=== PATIENT | male | born 1995 | race Caucasian/White ===

== ENCOUNTER 2019-08-11 22:05 | Emergency (ER) | payer MEDICAID ==
[~2019-08-11] VITALS: Ht 185.4 cm; Wt 65.9 kg
[2019-08-11] MEDS ORDERED: acetaminophen w/codeine (30MG) #3 tablet PO ONE (22:45)
[2019-08-11] MEDS ORDERED: HYDR-4383 PO (23:13)
[2019-08-11] MEDS ORDERED: HYDROcodone/acetaminophen 10/325mg tab PO ONE (23:15)
[2019-08-11 23:49] VITALS: BP 119/88
== END 2019-08-11 23:50 | disposition home or self-care (01) ==
LOC: ER 22:05
DX: S52.602A Unspecified fracture of lower end of left ulna, initial encounter for closed fracture (principal); F17.200 Nicotine dependence, unspecified, uncomplicated; F12.90 Cannabis use, unspecified, uncomplicated; Z79.899 Other long term (current) drug therapy; V89.2XXA Person injured in unspecified motor-vehicle accident, traffic, initial encounter; Y93.89 Activity, other specified; Y92.89 Other specified places as the place of occurrence of the external cause; Y99.8 Other external cause status
CPT/HCPCS: 29125; 73090; 99283

== ENCOUNTER 2019-08-22 15:11 | Outpatient (CLI) | payer MEDICAID ==
[~2019-08-22 15:11] MED LIST: HYDR-4383 PO
== END 2019-08-22 16:35 | disposition home or self-care (01) ==
LOC: ORTHO 15:11
PROVIDERS: ATTEND Orthopaedic Surgery
DX: S52.602A Unspecified fracture of lower end of left ulna, initial encounter for closed fracture (principal); F17.200 Nicotine dependence, unspecified, uncomplicated; F12.90 Cannabis use, unspecified, uncomplicated; Z79.899 Other long term (current) drug therapy; V89.2XXA Person injured in unspecified motor-vehicle accident, traffic, initial encounter; Y93.89 Activity, other specified; Y92.89 Other specified places as the place of occurrence of the external cause; Y99.8 Other external cause status
CPT/HCPCS: 73110; A4590; G0463

== ENCOUNTER 2019-09-19 15:42 | Outpatient (CLI) | payer MEDICAID | END 2019-09-19 16:51 | disposition home or self-care (01) | LOC: ORTHO 15:42 | PROVIDERS: ATTEND Orthopaedic Surgery | DX: F17.200 Nicotine dependence, unspecified, uncomplicated (principal); S52.602D Unspecified fracture of lower end of left ulna, subsequent encounter for closed fracture with routine healing; X58.XXXD Exposure to other specified factors, subsequent encounter | CPT/HCPCS: 73110; G0463 ==

== ENCOUNTER 2021-01-05 09:24 | Day surgery (SDC) | payer MEDICAID ==
[2020-12-29 16:39] LABS: BASOPHILS # (AUTO) 0.1 X10'3 (0-0.2); BASOPHILS % (AUTO) 0.7 % (0-1); EOSINOPHILS # (AUTO) 0.3 X10'3 (0-0.9); EOSINOPHILS % (AUTO) 1.8 % (0-6); LYMPHOCYTES # (AUTO) 2.5 X10'3 (1.1-4.8); LYMPHOCYTES % (AUTO) 16.9 % (21-51); MEAN CORPUSCULAR HEMOGLOBIN 31.9 PG (27.0-31.0); MEAN CORPUSCULAR VOLUME 93.8 FL (78-98); MEAN PLATELET VOLUME 7.9 FL (7.4-10.4); MONOCYTES # (AUTO) 1.6 X10'3 (0-0.9); MONOCYTES % (AUTO) 10.4 % (2-12); NEUTROPHILS # (AUTO) 10.4 X10'3 (1.8-7.7); NEUTROPHILS % (AUTO) 70.2 % (42-75); PRE OP HEMATOCRIT 44.6 % (42.0-52.0); PRE OP HEMOGLOBIN 15.2 g/dL (14.0-17.9); PRE OP PLATELET COUNT 344 X10'3 (140-440); RED BLOOD COUNT 4.75 X10'6 (4.70-6.10); RED CELL DISTRIBUTION WIDTH 13.8 % (11.5-14.5)
[2020-12-29 16:56] LABS: ALBUMIN 4.1 G/DL (3.4-5.0); ALBUMIN/GLOBULIN RATIO 1.1 (1.1-1.5); ALKALINE PHOSPHATASE 89 IU/L (46-116); BLOOD UREA NITROGEN 12 MG/DL (7-18); BUN/CREATININE RATIO 12.2 (5.4-32.0); CALCIUM 9.5 MG/DL (8.5-10.1); CHLORIDE 103 MMOL/L (99-107); CREATININE 0.98 MG/DL (0.60-1.10); PRE OP ALT 32 U/L (30-65); PRE OP ANION GAP 10 (8-16); PRE OP AST 28 U/L (10-37); PRE OP BILIRUB, TOTAL 0.4 MG/DL (0.0-1.0); PRE OP GLUCOSE 88 MG/DL (70-104); PRE OP POTASSIUM 3.4 MMOL/L (3.4-5.1); PRE OP SODIUM 141 MMOL/L (135-145); TOTAL CARBON DIOXIDE 27.6 MMOL/L (24-32); eGFR > 90 ML/MIN
[~2021-01-05] VITALS: Ht 185.4 cm; Wt 73.1 kg
[2021-01-05] VITALS (10 sets, daily range): BP systolic 112–143; BP diastolic 62–77
[~2021-01-05 09:24] MED LIST changes: -HYDR-4383 PO; +NO HOME MEDS; +cefazolin/dext.iso 2gm/100ml IV ONE; +famotidine 20mg tablet PO ONE; +ringers solution, lacted 1,000 ML IV SCH
[2021-01-05] MEDS ORDERED: hydrALAZINE 20mg/ml inj. IV PRN (09:30)
[2021-01-05] MEDS ORDERED: labetalol 20mg/4ml (5mg/ml) syringe IV PRN (09:30)
[2021-01-05] MEDS ORDERED: morphine 2 MG/ML inj. syringe IV PRN (09:30)
[2021-01-05] MEDS ORDERED: ondansetron/PF 4mg/2ml inj IV PRN (09:30)
[2021-01-05] MEDS ORDERED: morphine 4 MG/ML inj SYRINge IV PRN (09:30)
[2021-01-05] MEDS ORDERED: ringers solution, lacted 1,000 ML IV SCH (09:30)
[2021-01-05] MEDS ORDERED: fentaNYL/PF 50MCG/1 ML 2ML syringe IV PRN ×2 (09:30)
[2021-01-05] MEDS ORDERED: LIDOcaine 1% (10mg/ml) 2ml vial ONE (09:50)
[2021-01-05] MEDS ORDERED: LIDOcaine 1% 30ml preserv. free vial ONE (10:15)
[2021-01-05] MEDS ORDERED: BUPIVAcaine/PF 2.5 mg/ml (0.25%) 30ml vial ONE (10:15)
--- NOTE | 2021-01-05 10:32 | NUR ---
HR 125 ON ADMIT DUE TO ELEVATED NERVES. PT. MUCH CALMER SINCE IV WAS INITIATED. Addendum: 01/05/21 at 1037 by Yenifer Newberry RN Amended: Links added.
[2021-01-05] MEDS ORDERED: oxyCODONE/APAP 5-325mg tablet PO PRN ×2 (10:35)
[2021-01-05] MEDS ORDERED: MIDAZolam 1 MG/ML 5ML VIAL ONE (10:40)
[2021-01-05] MEDS ORDERED: fentaNYL/PF 50MCG/1 ML 2ML syringe ONE (10:40)
[2021-01-05] MEDS ORDERED: glycopyrrolate 0.2mg/ml inj ONE (10:41)
[2021-01-05] MEDS ORDERED: rocuronium 10mg/ml inj IV ONE (10:41)
[2021-01-05] MEDS ORDERED: LIDOcaine 2% (20mg/ml) 5ml vial ONE (10:41)
[2021-01-05] MEDS ORDERED: ondansetron/PF 4mg/2ml inj ONE (10:41)
[2021-01-05] MEDS ORDERED: propofol inj 20 ML IV ONE (10:41)
[2021-01-05] MEDS ORDERED: sevoflurane 250ml liquid IH ONE (10:42)
[2021-01-05] MEDS ORDERED: dexamethasone sod phosphate 10mg/ml inj ONE (10:42)
[2021-01-05] MEDS ORDERED: neostigmine methylsulfate 1 MG/ML 10ml vial ONE (10:42)
[2021-01-05] MEDS ORDERED: metoprolol tartrate 1mg/ml inj IV ONE (10:56)
--- NOTE | 2021-01-05 12:00 | NUR ---
ADMITTED TO PACU FROM OR ACCOMPANIED BY ANESTHESIA. INTIAL PHYSICAL ASSESSMENT DONE AND RECORDED. REPORT RECEIVED FROM ANESTHESIA.
--- NOTE | 2021-01-05 13:30 | NUR ---
DISCHARGE CRITERIA MET, DISCHARGE INSTRUCTIONS GIVEN, DEMONSTRATES VERBAL UNDERSTANDING. DISCHARGED HOME IN GOOD CONDITION.
== END 2021-01-05 13:30 | disposition home or self-care (01) ==
LOC: PAS 09:24
PROVIDERS: ATTEND Surgery
DX: K40.90 Unilateral inguinal hernia, without obstruction or gangrene, not specified as recurrent (principal); Z20.822 Contact with and (suspected) exposure to COVID-19; F41.9 Anxiety disorder, unspecified; F17.210 Nicotine dependence, cigarettes, uncomplicated; Z72.89 Other problems related to lifestyle; Z79.899 Other long term (current) drug therapy
CPT/HCPCS: 36415; 49650; 80053; 82948; 85025; C1781; J1100; J2001; J2250; J2405; J2704; J2710; J3010; J3490; S2900; U0003; U0005; A4215; A4618; J7120

== ENCOUNTER 2025-07-07 22:07 | Inpatient (IN) | payer MEDICAID ==
[~2025-07-07] VITALS: Ht 185.4 cm; Wt 87.6 kg
[~2025-07-07 22:07] MED LIST changes: -cefazolin/dext.iso 2gm/100ml IV ONE; -famotidine 20mg tablet PO ONE; -ringers solution, lacted 1,000 ML IV SCH
[2025-07-07 23:03] LABS: MEAN PLATELET VOLUME 8.1 FL (7.4-10.4); RED CELL DISTRIBUTION WIDTH 13.6 % (11.5-14.5)
[2025-07-07 23:10] LABS: CREATININE 1.14 MG/DL (0.60-1.10); TOTAL CARBON DIOXIDE 30.7 MMOL/L (24-32); eCRCL 109 ML/MIN; eGFR 76 ML/MIN
[2025-07-07] MEDS: fentaNYL/PF 50MCG/1 ML 2ML syringe IV ONE ×2 (23:43→23:46)
--- NOTE | 2025-07-07 23:45 | Physician Documentation ---
History of Present Illness Chief Complaint: Abdominal Pain Stated Complaint: ABD PAIN Time Seen by MD: 22:35 OK to notify your PCP?: Yes Primary Medical Doctor: Shantell Rondon Source: patient Mode of Arrival: POV Exam Limitations: no limitations HPI Mr. Cage is a 30 y/o male who presents with c/o generalized diffuse ABD pain. He states that pain started earlier today and has persisted. He initially thought it was due to constipation so he took Dulcolax without significant improvement. Last BM was ~ 0230 this morning. Denies BRBPR or melena. No hematu columba or dysuria. No recent unexplained weight loss. No recent ABD trauma. + nausea/vomiting. Denies hematemesis. Medication Reconciliation Allergies: Coded Allergies: No Known Allergies (Unverified , 08/11/19) Miscellaneous Medications Home Med List (No Home Medications), (Reported) Past Medical History Past Medical History: No Pertinent History Past Surgical History: other Alcohol Use: None Drug Use: marijuana Lives with: Family Lives In: Home Occupation: student Review of Systems All Other Systems at this time: Reviewed and Negative Physical Exam Vital Signs: RN Vital Signs have been reviewed: Yes, Temperature: 97.8, Source: Temporal, Heart Rate: 107, Respiratory Rate: 18, BP: 147/75, Pulse Oximetry: 99, Weight: 87.600 Oxygen Flow Rate: 0 Physical Exam GEN: Alert and oriented and in NAD. HEENT: NC/AT. PERRLA. No scleral icterus. MMM. No oral lesions. NECK: Supple. No JVD. CHEST: RRR. No M/G/T. LUNGS: CTA B. No W/R/R. ABD: Soft. NTND. + BS. No rebounding or guarding. BACK: No CVA TTP. EXT: No c/c/e. NEURO: Alert and oriented x 4. Cooperative. Sensorimotor intact x 4 extremities. Progress Results/Orders Results/Orders Orders - PER DODGE MD Urinalysis, Cult If Indicated (07/07/25 22:16) Ct Abdomen Pelvis (07/07/25 23:27) Completed Orders - PER DODGE MD Cbc/Diff (07/07/25 22:16) BMP (07/07/25 22:16) Lipase (07/07/25 22:16) CMP (07/07/25 22:16) Fentanyl/Pf (Fentanyl 0.05 Mg/Ml Syringe (07/07/25 23:35) Fentanyl/Pf (Fentanyl 0.05 Mg/Ml Syringe (07/07/25 23:35) Vital Signs 07/07/25 07/07/25 22:27 22:57 Temp 97.8 Pulse 107 Resp 18 B/P (MAP) 147/75 Pulse Ox 99 O2 Flow Rate 0 Laboratory Tests Test 07/07/25 22:25 White Blood Count 17.2 H Red Blood Count 5.45 Hemoglobin 17.5 Hematocrit 52.1 H Mean Corpuscular Volume 95.5 Mean Corpuscular Hemoglobin 32.2 H Mean Corpuscular Hemoglobin Concent 33.7 Red Cell Distribution Width 13.6 Platelet Count 390 Mean Platelet Volume 8.1 Neutrophils (%) (Auto) 87.4 H Lymphocytes (%) (Auto) 7.0 L Monocytes (%) (Auto) 5.2 Eosinophils (%) (Auto) 0.2 Basophils (%) (Auto) 0.2 Neutrophils # (Auto) 15.0 H Lymphocytes # (Auto) 1.2 Monocytes # (Auto) 0.9 Eosinophils # (Auto) 0.0 Basophils # (Auto) 0.0 CBC Comment Sodium Level 138 Potassium Level 4.3 Chloride Level 99 Carbon Dioxide Level 30.7 Anion Gap 8 Blood Urea Nitrogen 11 Creatinine 1.14 H Estimated GFR/1.73 m2 76 BUN/Creatinine Ratio 9.6 L Glucose Level 111 H Calcium Level 9.6 Total Bilirubin 0.3 Aspartate Amino Transf (AST/SGOT) 45 H Alanine Aminotransferase (ALT/SGPT) 101 H Alkaline Phosphatase 79 Total Protein 9.1 H Albumin 4.4 Globulin 4.7 H Albumin/Globulin Ratio 0.9 L Lipase > 375 H Chemistry Comments Medical Decision Making Additional information obtaine: old records Findings While here in the ED, he remained hemodynamically normal with ABC's intact and in NAD. He is afebrile but appears uncomfortable. ABD exam nonfocal on exam. No rebounding or guarding. + leukocytosis with WBC count of 17 with neutrophil predominance and without a left shift. Lytes are within normal range. Lipase > 375 and LFT's slightly elevated. He appears pretty uncomfortable so decision made to scan to further evaluate. CT ABD/Pelvis obtained and showed signs to confirm pancreatitis. After further discussion, he reports that he drinks a considerable amount of alcohol. His s/s appear most consistent with alcohol- induced pancreatitis. He will be admitted for close monitoring and IV fluid resuscitation. Differential Dx:Considerations: AAA, Aortic dissection, Appendicitis, Bowel obstruction, Cholangitis, Cholelithasis, Constipation, Diverticular disease, Esophagitis, Gastritis/PUD, Hernia, Hepatitis, Inflammatory BD, Ischemic bowel, Pancreatitis, Testicular torsion, Urinary obstruction, Urinary tract infection, Urolithiasis Departure Disposition: ADMITTED INPATIENT Admitted to Inpatient Unit: yes, to hospitalist Admission Level of Care: Med/Surg Impression: Primary Impression: Abdominal pain Additional Impression: Alcohol induced acute pancreatitis Condition: Improved Discharge Instructions: Acute Pancreatitis, [id number] Referrals: NO PRIMARY CARE PROVIDER (PCP) Education Educated: Patient Educated regarding: diagnosis, treatment Signature Scribe Signature: N/A Attestation: N/A PER DODGE MD Jul 07, 2025 23:45
[2025-07-08] VITALS (7 sets, daily range): BP systolic 108–146; BP diastolic 64–99; PULSE 86–92; RESP 14–18; TEMP 97.7–98.9; O2SAT 93–99
[2025-07-08] MEDS ORDERED: iohexol 300mg/ml 100ml inj. ONE (00:03)
--- NOTE | 2025-07-08 00:36 | RADIOLOGY REPORT ---
Exam: CT CT ABDOMEN PELVIS W/ IV CONTRAST History: Diffuse ABD pain COMPARISON: None Technique: Multidetector spiral CT of the abdomen and pelvis was performed from lung bases to pubic symphysis. Intravenous contrast was administered during this examination. Portal venous imaging was obtained. Axial, coronal and sagittal multiplanar reformats were performed by the technologist on a separate workstation. Radiation Dose : 1. Abdomen/Pelvis: CTDIvol 15 mGy, DLP 899 mGy*cm. Findings: Lower Chest: No acute findings. Liver: Parenchymal hypo enhancement, with a portion of the dome excluded from [id number]. Gallbladder and Biliary Tree: Unremarkable Pancreas: Subtle parenchymal and peripancreatic stranding of the body and tail. No fluid collection or necrosis. Spleen: Unremarkable Adrenal Glands: Unremarkable Kidneys: Normal. Bladder: Unremarkable. Pelvic Organs: Unremarkable as visualized. Bowel: No bowel wall thickening or obstruction. Small hiatal hernia with air- fluid level. Small amount of liquid contents within the distal small bowel and proximal large bowel. No evidence of appendicitis. Vasculature: Unremarkable. Lymphadenopathy: No evident adenopathy. Peritoneum: No ascites, free air, or fluid collection. Abdominal Wall: No significant hernia. Musculoskeletal: No acute abnormality. IMPRESSION: 1. Findings compatible with acute interstitial pancreatitis, correlate with lab values. 2. Small hiatal hernia with evidence of gastroesophageal reflux. Radiation optimization: All CT scans at this facility use at least one of these dose optimization techniques: automated exposure control mA and/or kV adjustment per patient size (includes targeted exams where dose is matched to clinical indication) or iterative reconstruction.
[2025-07-08] MEDS ORDERED: potassium Cl 20 mEq SR tablet PO PRN ×2 (01:30)
[2025-07-08] MEDS ORDERED: potassium Cl 40MEQ/1/2NS 520ml 520 ML IV PRN (01:30)
[2025-07-08] MEDS ORDERED: magnesium sulf-water 4G/100mL 100 ML IV PRN (01:30)
[2025-07-08] MEDS ORDERED: mag hydrox/Alum hydrox/simeth 30ml oral suspension PO PRN (01:30)
[2025-07-08] MEDS ORDERED: magnesium sulf-water 2g/50mL 50 ML IV PRN (01:30)
[2025-07-08] MEDS ORDERED: magnesium hydroxide 30ml (MOM) UD suspension PO PRN (01:30)
[2025-07-08] MEDS ORDERED: magnesium Cl slow-release 64mg tablet PO PRN (01:30)
[2025-07-08] MEDS ORDERED: metoclopramide 5 mg/ml inj IV PRN (01:35)
[2025-07-08 01:47] LABS: APTT 26 SECONDS (22-32); INR 1.0 INR
[2025-07-08] MEDS: HYDROmorphone inj. 0.5 MG/0.5 ML DISP.SYRIN IV PRN (01:54)
[2025-07-08] MEDS: ondansetron/PF 4mg/2ml inj IV PRN (01:54)
[2025-07-08 01:58] LABS: PHOSPHORUS 3.9 MG/DL (2.3-4.5)
[2025-07-08] MEDS: normal saline 1000ML IV soln IVB ONE (01:58)
[2025-07-08] MEDS: normal saline 1000ml 1,000 ML IV SCH (01:58)
[2025-07-08 01:59] LABS: PRO BRAIN NATRIURETIC PEPTIDE < 30 PG/ML (0-125)
[2025-07-08] MEDS: ringers solution, lacted 1,000 ML IV ONE ×3 (02:25→12:39)
--- NOTE | 2025-07-08 02:41 | HISTORY AND PHYSICAL-Residence ---
History & Physical Providers to CC Resident Creating Document: JOANNE CALDERON, RES ~ History of Present Illness Primary Medical Doctor: Shantell Rondon Reason for Admit\Complaint: Abdominal pain, nausea and vomiting History of Present Illness This is a 30 year old male with alcohol abuse presented came to the ER with chief complaint abdominal pain, nausea and vomiting. Patient stated that when he woke up from a nap this afternoon, he has gradually increasing, constant, burning type of diffuse generalized abdominal pain radiating to back, with severity of 8/10 in intensity associated with nausea and few episodes of vomiting. Initially patient thought it was due to constipation and he took Dulcolax without any significant improvement. The last bowel movement was 0230 this morning. Patient endorses that he drinks 4-5 beers every day and the last drink was yesterday night. Patient denies similar kind of episodes in the past. Patient denies recent food intake outside or sick contacts or recent trauma. Patient denies constipation, diarrhea, difficulty in breathing, chest pain, lightheadedness, flank pain, abdominal distention, swelling of legs,dyspepsia, blood in stools or vomiting, dysuria, weight loss. Allergies: Coded Allergies: No Known Allergies (Unverified , 08/11/19) Home Medications Home Medications Active Reported No Home Medications (Home Med List) Each Past Medical History Past Medical History No pertinent past medical history Past Surgical History Surgical History Comment Hernia repair Past Social History Social History Comment Alcoholic: Drinks 4-5 beers per day since 2021, the last drink was yesterday night. Ex-smoker, previously used to smoke 1 pack of cigarettes, quit smoking x 2020, using nicotine patch Denies any recreational drug use Lives with his friends Worked at [employer], fired from a job x 3 weeks ago. Smoking: Non-Smoker, Cigarettes Alcohol Use: None Drug Use: Marijuana Lives with: Family Lives In: Home Occupation: student ROS All Other Systems: Reviewed and Negative ROS Constitutional: No fever, chills, dizziness, weight gain or loss, night sweats Eyes: No pain, erythema, discharge, blurring of vision ENT: No sore throat, epistaxis, tinnitus Cardiovascular:No chest pain, palpitations, syncope, lower extremity edema, paroxysmal nocturnal dyspnea Respiratory: No Shortness of breath and cough, No hemoptysis. Gastrointestinal: Reports Abdominal pain, vomiting,nausea and no melena. Normal appetite. No constipation,diarrhea, hematemesis, Musculoskeletal: No swelling or edema of extremities. Integumentary: No change in skin, hair, nails. No swelling, bruising, abrasions Neurologic: No weakness,No headache, neck pain, numbness or tingling of the extremities, Psychiatric: No delusions, depression, loss of interest in normal activity or change in sleep pattern, hallucinations, suicidal ideations Endocrine: No fatigue, no weakness. polydipsia, polyuria, change in appetite, heat or cold intolerance, sweating, dry skin Hematological: No bleeding, petechiae, bruising Allergies: No asthma or urticaria Exam Vitals: Vital Signs Date Time Temp Pulse Resp B/P (MAP) Pulse Ox O2 Delivery O2 Flow Rate FiO2 07/08/25 00:41 97.8 76 16 151/95 (113) 100 0 General: Awake , alert and oriented to time,place, person,not in distress HEENT: Atraumatic, normocephalic, PERRLA, EOMI, anicteric sclera ; pink conjunctiva, dry mucos membranes Neck: Trachea midline. Supple, normal range of motion, no JVD, no lymphadenopathy Chest and Respiratory: Equal breath sounds bilaterally, no tachypnea, wheezing, ronchi,rubs .Chest wall is symmetric and without deformity. Cardiac: S1, S2 heard,Regular rate and rhythm, no murmurs ,no gallops, no rubs. Abdomen: Soft, no abdominal distention, mild tenderness over epigastric region, No guarding or rigidity, Ferris's sign negative. normal bowel sounds x4 quadrant, no hepatosplenomegaly MSK: Range of motion of all extremities are normal. There is no joint pain or joint swelling or joint erythema. There is no muscle pain or tenderness or swelling. Extremities: warm, well-perfused, No cyanosis, clubbing, 2+ pulses felt Neurological: Mental status exam: alert and consciousness, orientation, memory, speech - Cranial nerve test: Cranial nerves II-XII intact. - Motor system: Normal Nutrition, normal tone, Power 5/5, no involuntary movements - Sensory system: Intact - Reflex testing: Biceps, triceps and knee reflexes 2+ - Cerebellar: Normal Skin: Warm and dry Psychiatry: Affect and mood are normal Diagnostic Data Last Recorded Lab Results: 07/07/25222407/07/252224 Diagnostic Data: Laboratory Tests Test 07/07/25 22:25 Prothrombin Time 10.3 SECONDS (9.0-12.0) INR International Normalized Ratio 1.0 INR Activated Partial Thromboplast Time 26 SECONDS (22-32) Coagulation Comments Advance Care Planning Advanced Care plannin - 30 Minutes (I spent a total of 17 minutes on reviewing various resuscitative measures with the patient at the time of admission. The patient has decided on a full code status) Additional Plan Abd pain, nausea and vomiting 2/2 Alcohol-induced acute pancreatitis CBC showed leukocytosis with neutrophil predominance Lipase > 375, amylase 347 CT abdomen: Subtle parenchymal and peripancreatic stranding of the body and tail with No fluid collection or necrosis suggestive of acute interstitial pancreatitis Started on clear liquid diets, advanced diet if patient tolerates Pain management with IV morphine p.r.n. IV Zofran 4 mg q.4h PRN for nausea & vomiting IV Protonix 40 mg q.12h IV lactated ringer 1 L bolus was given and started on 150 mL/hr Follow up on lipase levels GERD CT scan Small hiatal hernia with evidence of gastroesophageal reflux IV Protonix 40 mg q.12h Mild IGOR likely prerenal due to dehydration Creatinine is 1.14 IV fluids & oral hydration Monitor BMP levels Alcohol use disorder Mildly elevated AST, ALT Substance use navigator and social organization professor consulted Follow up on ammonia levels Started on mild alcohol withdrawal protocol Code status: Full code DVT prophylaxis : Heparin GI prophylaxis: IV Protonix Nutrition: Clear liquids diet for now Physical therapy: ordered Line/tube: PIV Analgesia/sedation: Morphine Disposition: Continue medical management and advance diet if patient tolerates. Resident attestation The above note has been reviewed and supervised by a senior resident PGY2/PGY3 Patient was seen, examined and discussed with the attending physician Ashley Calderon MD Internal Medicine Resident, PGY 1 Plan reviewed with bedside team. Patient seen through remote audiovisual assessment through HIPAA compliant setup. All labs, flowsheets, and images reviewed Cumulative nonprocedural care time spent in directed patient care = 30 min Date of Service: Jul 08, 2025 Billing Provider: RODRIGUEZ ROSAS MD, SUNIL KUMAR, RES Jul 08, 2025 02:41 RODRIGUEZ ROSAS MD Jul 08, 2025 07:38
[2025-07-08 02:44] LABS: URINE AMPHETAMINE SCREEN NEGATIVE (Neg); URINE BARBITUATE SCREEN NEGATIVE (Neg); URINE BENZODIAZEPINES SCREEN NEGATIVE (Neg); URINE CANNABINOID SCREEN NEGATIVE (Neg); URINE COCAINE SCREEN NEGATIVE (Neg); URINE METHADONE SCREEN NEGATIVE (Neg); URINE OPIATE SCREEN NEGATIVE (Neg); URINE PHENCYCLIDINE SCREEN NEGATIVE (Neg)
[2025-07-08 03:10] LABS: LEUKOCYTE ESTERASE ,URINE NEGATIVE (Neg); NITRITES, URINE NEGATIVE (Neg); OCCULT BLOOD,URINE TRACE-INTACT (Neg)
[2025-07-08 03:22] LABS: UA COLLECTION TYPE CLN CATCH MIDSTREAM
[2025-07-08 03:25] LABS: AMORPHOUS PHOSPHATES 1+; SQUAMOUS EPITHELIAL CELL,UR NONE SEEN /LPF (FEW)
[2025-07-08] MEDS ORDERED: diazepam inj 5 MG/ML inj. IV PRN (03:55)
[2025-07-08] MEDS: ringers solution, lacted 1,000 ML IV SCH (04:47)
[2025-07-08 05:59] LABS: LACTIC SEPSIS 1.0 MMOL/L (0.4-2.0)
[2025-07-08] MEDS: K and/or MAG REPLACEMENT MC SCH (08:00)
[2025-07-08] MEDS: folic acid 1mg/0.2ml inj IV SCH (08:00)
[2025-07-08] MEDS: nicotine 14mg patch - 24hr TD SCH (08:00)
[2025-07-08] MEDS: docusate sod 100mg capsule PO SCH (08:07)
[2025-07-08] MEDS: thiamine 100mg/ml 2ml inj. IV SCH (08:09)
[2025-07-08] MEDS: heparin, porcine 5000 units/ml vial SQ SCH (08:09)
[2025-07-08 08:57] LABS: MEAN PLATELET VOLUME 7.8 FL (7.4-10.4); RED CELL DISTRIBUTION WIDTH 13.7 % (11.5-14.5)
[2025-07-08 09:18] LABS: CREATININE 1.03 MG/DL (0.60-1.10); LACTATE DEHYDROGENASE 149 U/L (85-227); TOTAL CARBON DIOXIDE 26.6 MMOL/L (24-32); eCRCL 121 ML/MIN; eGFR 86 ML/MIN
[2025-07-09 05:55] LABS: MEAN PLATELET VOLUME 8.1 FL (7.4-10.4); RED CELL DISTRIBUTION WIDTH 13.6 % (11.5-14.5)
[2025-07-09 06:00] VITALS: BP 116/72; PULSE 89; RESP 16; TEMP 98.5; O2SAT 97
[2025-07-09 06:22] LABS: CHOL/HDL RATIO 5.4 (0.00-4.99); CREATININE 0.93 MG/DL (0.60-1.10); LDL CHOLESTEROL 156 MG/DL (50-100); PHOSPHORUS 3.3 MG/DL (2.3-4.5); TOTAL CARBON DIOXIDE 28.6 MMOL/L (24-32); eCRCL 134 ML/MIN; eGFR > 90 ML/MIN
[2025-07-09] MEDS ORDERED: ONDA-103 PO (06:53)
[2025-07-09 07:13] VITALS: BP 127/81; PULSE 109; RESP 16; TEMP 98.5
[2025-07-09 08:40] VITALS: RESP 16; O2SAT 99
--- NOTE | 2025-07-09 10:45 | PROGRESS NOTE ---
Daily Progress Note Providers to CC ~ Antibiotic Timeout Antibiotic Ordered?: No Subjective No acute events overnight. Patient examined at bedside. No new complaints, not in acute distress. Patient denies chest pain, sob, palpitations, n/v/d. Reports improving abdominal pain. Tolerating clear liquid diet well. Labs notable for uptrended CRP. Continued on IVF. Objective Vital Signs Date Time Temp Pulse Resp B/P (MAP) Pulse Ox O2 Delivery O2 Flow Rate FiO2 07/09/25 10:11 16 07/09/25 08:40 99 Room Air 07/09/25 07:13 98.5 109 127/81 (96) 07/08/25 20:00 0.0 Result Diagram: 07/09/25 0503 07/09/25 0503 Physical Exam General: Generalized weakness, A&Ox 3, NAD HEENT: Normocephalic, PERRLA Neck: Supple, trachea midline, no JVD Chest: Clear to auscultation bilaterally Cardiovascular: RRR, S1&S2 GI: Mild tenderness in right upper quadrant abdomen; negative rebound tenderness; normoactive bowel sounds in all four quadrants Extremities: No cyanosis/clubbing/or edema TOUR DRIVER: CN II-XII intact, no focal deficits Musculoskeletal: No paraspinal muscle tenderness, no muscle spasm Skin: Warm and intact Coagulation Studies Laboratory Tests Test 07/07/25 22:25 Prothrombin Time 10.3 SECONDS (9.0-12.0) INR International Normalized Ratio 1.0 INR Activated Partial Thromboplast Time 26 SECONDS (22-32) Coagulation Comments Problem\Assessment\Plan Assessment & Plan Abd pain, nausea and vomiting 2/2 Alcohol-induced acute pancreatitis SIRS 2/2 pancreatitis- POA IGOR vs CKD Alcohol use disorder -abd pain, lipase >3xULN, elevated CRP, CT shows acute pancreatitis, normal gallbladder/biliary tree -07/10: continue IVF, on clear liquid diet advancing as tolerated, mild alcohol withdrawal protocol, social group worker/substance use navigator GERD Hiatal hernia -PPI Code status: Full code DVT prophylaxis: heparin Date of Service: Jul 09, 2025 Billing Provider: RAY ROY Common Visit Codes: [id number] INP/OBS CARE(HIGH) RAY ROYP Jul 09, 2025 10:45
[2025-07-09 11:18] VITALS: BP 120/70; PULSE 97; RESP 16; TEMP 98.1
[2025-07-09] MEDS ORDERED: HYDROcodone/acetaminophen 5mg/325mg tablet PO PRN (16:00)
[2025-07-09] MEDS: HYDROcodone/acetaminophen 10/325mg tab PO PRN (19:08)
[2025-07-09] MEDS: ringers solution, lacted 1,000 ML IV ONE (19:08)
[2025-07-10 04:25] LABS: MEAN PLATELET VOLUME 7.9 FL (7.4-10.4); RED CELL DISTRIBUTION WIDTH 13.4 % (11.5-14.5)
[2025-07-10 04:40] LABS: CREATININE 1.01 MG/DL (0.60-1.10); PHOSPHORUS 3.0 MG/DL (2.3-4.5); TOTAL CARBON DIOXIDE 29.7 MMOL/L (24-32); eCRCL 123 ML/MIN; eGFR 88 ML/MIN
[2025-07-10 06:00] VITALS: BP 132/80; PULSE 80; RESP 14; TEMP 98.5; O2SAT 100
[2025-07-10 10:02] VITALS: BP 119/73; PULSE 92; RESP 16; TEMP 97.8
--- NOTE | 2025-07-10 16:31 | PROGRESS NOTE ---
Daily Progress Note Providers to CC ~ Antibiotic Timeout Antibiotic Ordered?: No Subjective No acute events overnight. Patient examined at bedside. No new complaints, not in acute distress. Patient denies chest pain, sob, palpitations, n/v/d. Reports improving abdominal pain. Labs notable for slightly uptrended CRP and normalized white count. Continued on IVF. Tolerating clear liquid diet well, advancing as tolerated. Objective Vital Signs Date Time Temp Pulse Resp B/P (MAP) Pulse Ox O2 Delivery O2 Flow Rate FiO2 07/10/25 10:02 97.8 92 16 119/73 (88) Room Air 07/10/25 06:00 100 07/08/25 20:00 0.0 Result Diagram: 07/10/2540307/10/25403 Physical Exam General: Generalized weakness, A&Ox 3, NAD HEENT: Normocephalic, PERRLA Neck: Supple, trachea midline, no JVD Chest: Clear to auscultation bilaterally Cardiovascular: RRR, S1&S2 GI: Mild tenderness in right upper quadrant abdomen; negative rebound tenderness; normoactive bowel sounds in all four quadrants Extremities: No cyanosis/clubbing/or edema TESTER PR[employer]ED [employer] BOARDS: CN II-XII intact, no focal deficits Musculoskeletal: No paraspinal muscle tenderness, no muscle spasm Skin: Warm and intact Coagulation Studies Laboratory Tests Test 07/07/25 22:25 Prothrombin Time 10.3 SECONDS (9.0-12.0) INR International Normalized Ratio 1.0 INR Activated Partial Thromboplast Time 26 SECONDS (22-32) Coagulation Comments Problem\Assessment\Plan Assessment & Plan Abd pain, nausea and vomiting 2/2 Alcohol-induced acute pancreatitis SIRS 2/2 pancreatitis- POA IGOR vs CKD Alcohol use disorder -abd pain, lipase >3xULN, elevated CRP, CT shows acute pancreatitis, normal gallbladder/biliary tree -07/09: continue IVF, on clear liquid diet advancing as tolerated, mild alcohol withdrawal protocol, long term care social worker/substance use navigator -07/10: still on clear liquid diet, advancing as tolerated; wbc normalized, CRP slightly uptrended GERD Hiatal hernia -PPI Code status: Full code DVT prophylaxis: heparin Date of Service: Jul 10, 2025 Billing Provider: RAY ROY Common Visit Codes: [id number] INP/OBS CARE(HIGH) RAY ROY Jul 10, 2025 16:31
[2025-07-10 18:00] VITALS: BP 115/69; PULSE 85; RESP 16; TEMP 98.8; O2SAT 94
[2025-07-10 20:00] VITALS: RESP 16; O2SAT 94
[2025-07-10 22:00] VITALS: BP 118/73; PULSE 87; RESP 14; TEMP 98; O2SAT 96
[2025-07-11] MEDS ORDERED: dextrose 50%-water 50ml dispensing syringe IV PRN (02:30)
[2025-07-11] MEDS ORDERED: glucagon, human recombinant 1mg kit SUBCUT PRN (02:30)
[2025-07-11] MEDS ORDERED: DEXTROSE 15 GM of carb/4 tabs (each vial/BOTTLE has 4 tablets) PO PRN ×2 (02:30)
[2025-07-11] MEDS: dextrose 50%-water 50ml dispensing syringe IV PRN (03:05)
[2025-07-11 06:00] LABS: CREATININE 0.93 MG/DL (0.60-1.10); PHOSPHORUS 3.1 MG/DL (2.3-4.5); TOTAL CARBON DIOXIDE 31.9 MMOL/L (24-32); eCRCL 134 ML/MIN; eGFR > 90 ML/MIN
[2025-07-11 06:01] LABS: MEAN PLATELET VOLUME 8.2 FL (7.4-10.4); RED CELL DISTRIBUTION WIDTH 13.4 % (11.5-14.5)
[2025-07-11] MEDS: pantoprazole 40mg Tablet.DR PO SCH (08:38)
[2025-07-11 08:39] VITALS: RESP 16; O2SAT 96
[2025-07-11 09:06] VITALS: RESP 16
[2025-07-11 11:38] VITALS: RESP 14; O2SAT 96
--- NOTE | 2025-07-11 17:21 | DISCHARGE SUMMARY ---
Discharge Summary Providers to CC ~ Discharge Summary Admission Diagnosis: ALCOHOL INDUCED ACUTE PANCREATITIS Hospital Course DATE OF ADMISSION: 07/08/25 DATE OF DISCHARGE: 07/11/25 Discharge Diagnosis\\Comment: Acute alcohol-induced pancreatitis SIR 2/2 pancreatitis Chronic alcoholism GERD Hernia IGOR- ruled out Operations\\Procedures: None Consultants: None Complications: None Condition on DC: Stable New Medications: Ondansetron HCl (Ondansetron HCl) 4 Mg Tablet 1 TAB PO Q6H PRN PRN for nausea/vomiting for 5 Days, #20 TAB 0 Refills Continued Medications: Home Med List (No Home Medications) Each Discharge Summary: History of Present Illness From H&P: "This is a 30 year old male with alcohol abuse presented came to the ER with chief complaint abdominal pain, nausea and vomiting. Patient stated that when he woke up from a nap this afternoon, he has gradually increasing, constant, burning type of diffuse generalized abdominal pain radiating to back, with severity of 8/10 in intensity associated with nausea and few episodes of vomiting. Initially patient thought it was due to constipation and he took Dulcolax without any significant improvement. The last bowel movement was 0230 this morning. Patient endorses that he drinks 4-5 beers every day and the last drink was yesterday night. Patient denies similar kind of episodes in the past. Patient denies recent food intake outside or sick contacts or recent trauma. Patient denies constipation, diarrhea, difficulty in breathing, chest pain, lightheadedness, flank pain, abdominal distention, swelling of legs,dyspepsia, blood in stools or vomiting, dysuria, weight loss." Hospital Course Diagnostic findings were notable for elevated lipase >3xULN, leukocytosis, elevated CRP, CT abdomen/pelvis revealing acute pancreatitis with unremarkable gallbladder and biliary tree. Pertinent negative findings were unremarkable LFT, negative procal, no fever, unremarkable triglycerides, and wnl serum calcium. Patient was treated with intravenous bolus fluids followed by continuous fluids. CRP was trended daily. Patient did not experience further complications throughout the entire hospital stay and remained clinically and hemodynamically stable. Patient tolerated diet well. Patient was seen and examined on the day of discharge. On day of discharge, vss and labs unremarkable. All labs, diagnostic workups, discharge plan discussed with patient in details during visit before discharge. All questions and concerns answered to the best of my professional knowledge. Patient is to be discharged to home to self and to follow-up with PCP within 2 weeks. Patient was instructed to abstain from alcohol upon discharge. Physical Exam General: A&Ox 3, NAD HEENT: Normocephalic, PERRLA Neck: Supple, trachea midline, no JVD Chest: Clear to auscultation bilaterally Cardiovascular: RRR, S1&S2 GI: Soft and nontender Extremities: No cyanosis/clubbing/or edema RESIDENTIAL SALES REPRESENTATIVE: CN II-XII intact, no focal deficits Musculoskeletal: No paraspinal muscle tenderness, no muscle spasm Skin: Warm and intact *Problems/Diagnosis: (1) Alcohol induced acute pancreatitis Status: Acute Total Time Spent on D/C: > 30 Minutes Date of Service: Jul 11, 2025 Billing Provider: RAY ROY Common Visit Codes: [id number]/OBS DISCH DAY >30min RAY ROY Jul 11, 2025 17:21
== END 2025-07-11 14:50 | disposition home or self-care (01) | DRG 282 ==
LOC: ER 22:07 → ED HOLD 07-08 01:07 → SUR 3N 07-08 04:07
PROVIDERS: ADMIT Internal Medicine Critical Care Medicine; ATTEND Nurse Practitioner Family
PROC: BW211ZZ Computerized Tomography (CT Scan) of Abdomen and Pelvis using Low Osmolar Contrast (ICD-10-PCS; principal; 2025-07-07)
DX: K85.20 Alcohol induced acute pancreatitis without necrosis or infection (principal); R65.11 Systemic inflammatory response syndrome (SIRS) of non-infectious origin with acute organ dysfunction; K21.9 Gastro-esophageal reflux disease without esophagitis; K44.9 Diaphragmatic hernia without obstruction or gangrene; F10.20 Alcohol dependence, uncomplicated
CPT/HCPCS: 36415; 74177; 80048; 80053; 80061; 80305; 80320; 81001; 82140; 82150; 82948; 83036; 83605; 83615; 83690; 83735; 83880; 84100; 84145; 84484; 85025; 85610; 85730; 86140; 87081; 96360; 99285; G0378; J1171; J1644; J2270; J2405; J2470; J3010; J3411; J3490; J7030; J7120; Q9967